=== PATIENT | male | born 1985 ===

== ENCOUNTER 2018-06-27 15:25 | Outpatient (CLI) | payer OTHER, SELFPAY ==
--- NOTE | 2018-06-30 11:58 | ONE_ITS ---
OCCUPATIONAL MEDICINE DATE OF SERVICE June 27, 2018 CHIEF COMPLAINT Bilateral elbow pain (right-hand dominant). 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 ASSESSMENT Right medial epicondylitis and left lateral epicondylitis. PLAN 1. Work restrictions refer to work status form. 2. Ibuprofen 800 mg t.i.d. (#42). 3. Ice for comfort p.r.n. 4. PT consult, first appointment 07/16/2018, placed on waiting list. 5. Elbow exercise given pending first PT appointment. 6. Followup in Occupational Medicine two weeks. Return to clinic sooner if condition worsens. More than 50% of this visit spent in the planning and coordination of care. The plan of care reviewed with the patient, who verbalized understanding and agreement. SUBJECTIVE Fili presents with complaints of right worse than left elbow pain which began approximately three weeks ago when his work load changed. 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 With the workload change, Fili is flipping 60 trays two to three times a week. His discomfort is on the inside of is right elbow and outside of his left elbow ; it is described as an uncomfortable tension. Recently, he had two brief episodes of sharp shooting pain. Fili is able to perform all of his work duties and his ADL's, but is concerned of his symptoms worsening. Increased discomfort is noted with lifting while keeping his palm up. Some relief noted with resting, ice and Advil. His sleep pattern is normal. He denies prior bilateral elbow injuries or surgeries. REVIEW OF SYSTEMS Denies headache, visual changes. Denies chest pain, palpitations. Denies shortness of breath, dyspnea. Denies GI or dysfunction. PAST MEDICAL HISTORY Tonsillectomy at age 16. MEDICATIONS Tylenol p.r.n. Advil p.r.n. ALLERGIES NO KNOWN DRUG ALLERGIES. SOCIAL HISTORY ETOH - 1 to 2 drinks per week. Tobacco - None. THC - Ingestion 2 to 3 times per week. Exercise - With employment. . Education - Some college. OBJECTIVE VITAL SIGNS: 115/70, 96.2, 70, 18, height 6-3 inches, weight 252, BMI 31.5. PHQ-9 = 2. GENERAL: 32-year-old male. Alert, oriented x3. Conversation appropriate. CARDIAC: HRR, no murmurs or extra heart sounds. RESPIRATORY: Lungs bilaterally CTA. Respirations unlabored. MUSCULOSKELETAL: Smooth easy gait, rounded posture. Shoulder height appears equal. Brachial, radial, ulnar pulses 1+ bilaterally. Biceps, triceps, brachioradialis reflexes 1+ bilaterally. Biceps, triceps, hand grasp, strength strong and equal bilaterally. ROM of shoulders, wrists and phalanges within normal limits bilaterally. RIGHT ELBOW: Skin pink in color, warm and dry to touch. Bony prominences and muscular nontender to palpation, except for region of medial epicondyle. No erythema, edema or ecchymoses evident. TESTS: Negative Tinel at wrist and elbow. Negative Phalen's. Negative for resisted wrist flexion, positive resisted wrist extension. Demonstrated ability to lift 1-3-5 pound weights without difficultY, 10 pounds yielded slight discomfort. LEFT ELBOW: Skin pink in color, warm and dry to touch. Bony prominences and musculature nontender to palpation, except for region of lateral epicondyle. No erythema, edema or ecchymoses evident. TESTS: negative Tinel at wrist and elbow. Negative Phalen's. Positive for resisted wrist flexion, negative resisted wrist extension. Demonstrated ability to lift 1-3-5 pound weights without difficulty, 10 pound yielded slight discomfort.
== END 2018-06-27 15:26 ==
PROVIDERS: Visit Provider Nurse Practitioner Family
DX: M25.521 Pain in right elbow (principal); M25.522 Pain in left elbow; M77.01 Medial epicondylitis, right elbow; M77.12 Lateral epicondylitis, left elbow
CPT/HCPCS: 99203

== ENCOUNTER 2018-07-11 11:26 | Outpatient (CLI) | payer OTHER, SELFPAY ==
--- NOTE | 2018-07-11 11:26 | ONE_ITS ---
DATE OF VISIT: JULY 11, 2018 ASSESSMENT: Right medial epicondylitis. Left lateral epicondylitis. PLAN: 1. Work restrictions - refer to work stats form. 2. Ibuprofen 800 mg. t.i.d. p.r.n. 3. Ice/heat for comfort p.r.n. 4. Physical therapy consult first appointment 07/16/18. 5. Elbow exercises to continue pending first physical therapy appointment. 6. Follow-up in Occupational Medicine in two weeks, return to clinic sooner if condition worsens. More than 50% of this visit was spent in the planning and coordination of care. Plan of care reviewed with the patient who verbalized understanding and agreement. CHIEF COMPLAINT: Bilateral elbow pain, right hand dominant. 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 SUBJECTIVE: Fili presents for follow-up of left elbow pain. Working under work restrictions without difficulty. States slight discomfort remains in both elbows but significantly improved. Has had no further instances of sharp, shooting pain. Is performing exercises 2 to 3 times per day and feels they have been helpful. Self-medicated with Ibuprofen t.i.d. with good relief noted. Iced one to two times this past week, did not feel that he needed more. First physical therapy appointment is scheduled for 07/16/18. REVIEW OF SYSTEMS: Denies headache, visual changes. Denies chest pain, palpitations. Denies shortness of breath, dyspnea. Denies GI or dysfunction. PAST MEDICAL/SURGICAL HISTORY: Tonsillectomy at age 16. MEDICATIONS: Tylenol p.r.n. Advil p.r.n. ALLERGIES: NO KNOWN DRUG ALLERGIES. SOCIAL: ETOH - 1 to 2 drinks per week. Tobacco - None. THC - Ingestion 2 to 3 times per week. Exercise - With employment. . Education - Some college. OBJECTIVE: GENERAL: 32 year-old male. Alert and oriented x 3. Conversation appropriate. No discomfort noted with lifting 20 pound weight both hands. RIGHT ELBOW: Skin pink in color, warm and dry to touch. Medial epicondyle remains sensitive to moderate palpation. Some discomfort noted today of lateral epicondyle. Erythema, edema and ecchymosis remain absent. TESTS: Positive resisted wrist extension but of decreased sensitivity. Demonstrated ability to lift 5 then 8 pound weight without difficulty, 10 pound yielded less discomfort than at last appointment. LEFT ELBOW: Skin pink in color, warm and dry to touch. Lateral epicondyle sensitive to moderate palpation. Erythema, edema and ecchymosis remain absent. TESTS: Positive for resisted wrist flexion but of decreased sensitivity. Demonstrated ability to lift 5 and then 8 pound weight without difficulty, 10 pound yielded less discomfort than at last appointment.
== END 2018-07-11 11:27 ==
PROVIDERS: Visit Provider Nurse Practitioner Family
DX: M25.521 Pain in right elbow (principal); M25.522 Pain in left elbow; M77.01 Medial epicondylitis, right elbow; M77.12 Lateral epicondylitis, left elbow
CPT/HCPCS: 99214

== ENCOUNTER 2018-07-25 13:13 | Outpatient (CLI) | payer OTHER, SELFPAY ==
--- NOTE | 2018-07-25 15:56 | ONE_ITS ---
DATE OF VISIT: July 25, 2018 ASSESSMENT: Right medial epicondylitis. Left lateral epicondylitis. PLAN: 1. MMI -- Continue with last PT appointment. More than 50% of this visit was spent in the planning and coordination of care. Plan of care reviewed with the patient who verbalized understanding and agreement. CHIEF COMPLAINT: Bilateral elbow pain, right-hand dominant. EMPLOYER: [employer] at [employer] since September 2017. SUBJECTIVE: Fili presents for follow-up of left elbow pain. Working under work restrictions without difficulty. States he feels good and is ready to be released to full duty. Sharp, shooting pains remain absent. Continues with PT exercises b.i.d; has one more PT appointment. Self-medicates with ibuprofen 3 to 4 times per week, usually at the end of the workday. REVIEW OF SYSTEMS: Denies headache, visual changes. Denies chest pain, palpitations. Denies shortness of breath, dyspnea. Denies GI or dysfunction. PAST MEDICAL/SURGICAL HISTORY: Tonsillectomy at age 16. MEDICATIONS: Tylenol p.r.n. Advil p.r.n. ALLERGIES: NO KNOWN DRUG ALLERGIES. SOCIAL: ETOH - 1 to 2 drinks per week. Tobacco - None. THC - Ingestion 2 to 3 times per week. Exercise - With employment. . Education - Some college. OBJECTIVE: GENERAL: 32-year-old male. Alert and oriented x3, smiling. RIGHT ELBOW: Skin pink in color, warm and dry to touch. Medial and lateral epicondyle nontender to palpation. TESTS: Resisted wrist extension now negative. Resisted wrist flexion remains negative. Demonstrated ability lift 8 and then 10 pound weight without difficulty or discomfort. LEFT ELBOW: Skin pink in color, warm and dry to touch. Lateral epicondyle nontender to palpation. TESTS: Resisted wrist flexion now negative. Resisted wrist extension remains negative. Demonstrates the ability to lift 8 and then 10 pound weight without difficulty or discomfort.
== END 2018-07-25 13:14 ==
PROVIDERS: Visit Provider Nurse Practitioner Family
DX: M77.01 Medial epicondylitis, right elbow (principal); M77.12 Lateral epicondylitis, left elbow
CPT/HCPCS: 99214